=== PATIENT | female | born 1985 | race Caucasian/White ===

== ENCOUNTER 2018-08-27 23:36 | Emergency (ER) | payer SELFPAY ==
[2018-08-28 00:11] VITALS: BP 146/75; PULSE 68; TEMP 98.7; BMI 39.0
[2018-08-28] MEDS ORDERED: BACITRACIN 15 GM TUBE TOPICAL OINTMENT TP ONE (00:38)
[2018-08-28] MEDS ORDERED: SILVER SULFADIAZINE 1% TOP CREAM 50 GM JAR TP ONE (00:38)
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
== END 2018-08-28 02:33 | disposition home or self-care (01) ==
LOC: JER 23:36
DX: T23.202D Burn of second degree of left hand, unspecified site, subsequent encounter (principal); Z48.00 Encounter for change or removal of nonsurgical wound dressing; X10.2XXD Contact with fats and cooking oils, subsequent encounter
CPT/HCPCS: 99283-25

== ENCOUNTER 2018-08-28 08:52 | Emergency (ER) | payer OTHER ==
[2018-08-28 09:07] VITALS: BP 111/60; PULSE 63; TEMP 98.2; BMI 27.5
--- NOTE | 2018-08-28 09:50 | PDOC ---
*Physical Exam - Vital Signs Last Vital Signs Temp Pulse Resp BP Pulse Ox 98.2 F 63 18 111/60 100 08/28/18 09:04 08/28/18 09:04 08/28/18 09:04 08/28/18 09:04 08/28/18 09:04 Medical Decision Making - Medical Decision Making 08/28/18 09:50 Pt seen by Midlevel Provider under my direct supervision I agree with plan as outlined by Midlevel Provider *DC/Admit/Observation/Transfer Diagnosis at time of Disposition: Burn - Discharge Dispostion Disposition: HOME Condition at time of disposition: Improved - Referrals - Patient Instructions Printed Discharge Instructions: How to Take Care of a Burn Additional Instructions: I have made to an appointment at the burn clinic for at 11 AM. Phone # [phone] [address] [place] [address] I have also demonstrated correct wound care to be done daily until your appointment along with the extra supplies I have provided to you today - Post Discharge Activity
[2018-08-28] MEDS ORDERED: morphine SULFATE 4 MG/ML VIAL ONE (10:02)
[2018-08-28] MEDS ORDERED: morphine CARPU-JECT 2 MG/1 ML DISP.SYRIN SQ ONE (10:11)
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
== END 2018-08-28 11:38 | disposition home or self-care (01) ==
LOC: JER 08:52
PROC: 3E013NZ Introduction of Analgesics, Hypnotics, Sedatives into Subcutaneous Tissue, Percutaneous Approach (ICD-10-PCS; principal; 2018-08-28)
DX: T23.262D Burn of second degree of back of left hand, subsequent encounter (principal); X10.2XXD Contact with fats and cooking oils, subsequent encounter
CPT/HCPCS: 99281-25

== ENCOUNTER 2023-04-15 04:13 | Day surgery (SDC) | payer OTHER ==
[2023-04-13 13:21] VITALS: BMI 30.1
[~2023-04-15 04:13] MED LIST: BUPIVACAINE HCL/PF 0.5% (5MG/ML) 10 ML VIAL IJ ONE
[2023-04-15] MEDS ORDERED: ONDANSETRON 4 MG/2 ML VIAL IVPUSH PRN (10:17)
[2023-04-15] MEDS ORDERED: LACTATED RINGERS SOLUTION 1,000 ML IV SCH (10:30)
[2023-04-15] MEDS ORDERED: HYDROmorphone HCl 2 MG/ML VIAL ONE (11:06)
[2023-04-15] MEDS ORDERED: PROPOFOL 20 ML ONE ×2 (11:16→11:28)
[2023-04-15] MEDS ORDERED: BUPIVACAINE HCL/PF 0.5% (5MG/ML) 10 ML VIAL IJ ONE (11:26)
[2023-04-15] MEDS ORDERED: FENTANYL CITRATE/PF 50 MCG/ML VIAL ONE ×2 (12:08→12:41)
[2023-04-15] MEDS ORDERED: ACETAMINOPHEN INJECTION 100 ML IVPB ONE (12:26)
[2023-04-15] MEDS ORDERED: ACETAMINOPHEN 1000 MG/100 ML BAG IVPB ONE (12:36)
[2023-04-15 14:36] VITALS: BP 137/72; PULSE 60; RESP 20; TEMP 96.8
== END 2023-04-15 14:03 | disposition home or self-care (01) ==
LOC: JASU-SURG 04:13
PROVIDERS: ATTEND Student in an Organized Health Care Education/Training Program
PROC: 0UT74ZZ Resection of Bilateral Fallopian Tubes, Percutaneous Endoscopic Approach (ICD-10-PCS; principal; 2023-04-15 11:00)
DX: Z30.2 Encounter for sterilization (principal)
CPT/HCPCS: 81025; 88305-TC; 94760